=== PATIENT | female | born 1950 | race Caucasian/White ===

== ENCOUNTER → 2020-04-10 | Outpatient (REF) | payer MEDICARE ==
[2020-04-10 17:03] LABS: COMPLEMENT C3 128 MG/DL (90-180); COMPLEMENT C4 31 MG/DL (10-40)
[2020-04-10 17:19] LABS: CREATININE,RANDOM URINE 18.3 MG/DL; TOTAL PROTEIN,RANDOM URINE < 5.0 MG/DL (0.0-12.0)
[2020-04-13 15:08] LABS: ANA (HEP2) Negative (.); ANTI DS-DNA AB Negative (Negative); RNP ANTIBODY 0.5 AI (0.0-0.9); SMITHS ANTIBODY < 0.2 AI (0.0-0.9)
== END ==
LOC: M SFHCRHEU 14:07
PROVIDERS: ATTEND Internal Medicine
DX: L93.2 Other local lupus erythematosus (principal); R76.8 Other specified abnormal immunological findings in serum
CPT/HCPCS: 82570; 84156; 86038; 86160; 86225; 86255; G0463

== ENCOUNTER → 2024-04-04 | Outpatient (REF) | payer MEDICARE | LOC: M SFHCDERM 08:31 | PROVIDERS: ATTEND Physician Assistant | DX: C44.602 Unspecified malignant neoplasm of skin of right upper limb, including shoulder (principal) ==

== ENCOUNTER → 2024-07-09 | Outpatient (REF) | payer MEDICARE | LOC: M SFHCDERM 16:39 | PROVIDERS: ATTEND Physician Assistant | DX: C44.92 Squamous cell carcinoma of skin, unspecified (principal) ==